=== PATIENT | female | born 1960 | race Caucasian/White ===

== ENCOUNTER 2019-07-23 13:55 | Outpatient (CLI) | payer MEDICARE, OTHER, SELFPAY ==
--- NOTE | 2019-07-23 14:09 | XR_ITS ---
WS: [id number] ABDOMEN 1 VIEW(S) HISTORY: UNSPECIFIED ABDOMINAL PAIN COMPARISON: 10/16/2014 Surgical sutures in the RIGHT abdomen from prior partial colectomy. There is a calcification measurin g 7.5 mm in the RIGHT abdomen. Could be associated with the ureter. No mass is identified. Sclerotic focus in the LEFT ilium has been present on prior studies. XR/XR abdomen 1V* [id number] IMPRESSION: 1. 7.5 mm calcification in the mid RIGHT abdomen may be a stone in the mid ure ter. For additional evaluation consider follow-up noncontrast CT abdomen and pe lvis. 2. Postsurgical changes in the RIGHT abdomen from prior colon surgery.
== END 2019-07-23 13:56 | disposition home or self-care (01) ==
LOC: RADWPI 14:00
PROVIDERS: Family Provider Family Medicine; PCP Nurse Practitioner Family; Visit Provider Nurse Practitioner Family
DX: R10.9 Unspecified abdominal pain (principal); Z98.890 Other specified postprocedural states
CPT/HCPCS: 74018

== ENCOUNTER 2019-07-25 10:12 | Outpatient (CLI) | payer MEDICARE, OTHER, SELFPAY ==
--- NOTE | 2019-07-25 10:19 | CT_ITS ---
WS: [id number] CT ABDOMEN AND PELVIS NONCONTRAST HISTORY: RENAL CALCULI TECHNIQUE: Imaging performed through the abdomen and pelvis. Coronal and sagittal reformats are submi tted. All CT scans at [facility] use at least one of these dose optimization techniques: automated exposure control; mA and/or kV adjustment per patient size (includes targeted exams where d ose is matched to clinical indication); or iterative reconstruction. DLP: 1216.64 mGycm COMPARISON: 10/16/2014 and KUB 07/23/2019 Lower thorax: Mild dependent changes at the lung bases. Cardiac chambers are very slightly enlarged. No pericardial effusion. No significant hiatal hernia. Liver: Mild hepatic steatosis. No bile duct dilatation. There is very slight enlargement of the liver extending to the iliac crest. Gallbladder: Unremarkable. Pancreas: Normal. Spleen: Normal. Adrenal glands: Normal. Right kidney: Normal size with no stones, masses or atrophy. Left kidney: Normal size with no stones, mass or atrophy. Minimal atherosclerosis. No aneurysm. No free fluid, intraperitoneal air or significant lymphadenopathy. GI tract: Extensive postsurgical changes in the RIGHT colon. Patient is status post RIGHT hemicolecto my. Calcification recently described on radiograph was probably associated with the postsurgical piña ges. No acute inflammation. No GI tract obstruction. Abdominal wall: Intact. Pelvis: No free fluid in the pelvis. Atrophic uterus is present. Coarse calcifications in the RIGHT l ateral uterus probably related to fibroid. Urinary bladder is minimally distended. Osseous structures: Unremarkable. CT/CT kidney stone [id number] IMPRESSION: 1. No renal stone or obstruction. Recently described calcification in the RIGH T abdomen was probably related to the postsurgical changes from hemicolectomy. 2. Partial RIGHT hemicolectomy. No ascites or mass. 3. Mild hepatomegaly and hepatic steatosis.
== END 2019-07-25 10:13 | disposition home or self-care (01) ==
LOC: RADWPI 10:15
PROVIDERS: Family Provider Family Medicine; PCP Nurse Practitioner Family; Visit Provider Nurse Practitioner Family
DX: N20.0 Calculus of kidney (principal); R16.0 Hepatomegaly, not elsewhere classified; K76.0 Fatty (change of) liver, not elsewhere classified
CPT/HCPCS: 74176

== ENCOUNTER 2019-07-26 07:36 | Outpatient (CLI) | payer MEDICARE, OTHER, SELFPAY ==
--- NOTE | 2019-07-26 07:44 | XR_ITS ---
WS: [id number] XR KUB [id number] REASON FOR EXAM: renal calculus FINDINGS: Previous exam dated July 23, 2019 a stone was seen in the right kidney this appears to be sim ilar in appearance. There is overlying fecal stasis in previous resection of the colon changes are no lane in this area. There are scattered fecal stasis seen throughout the colon. XR/XR KUB [id number] IMPRESSION: Postop changes of the right colon. There appears to be a stone in the right kidney unchanged.
== END 2019-07-26 07:37 | disposition home or self-care (01) ==
LOC: RAD 07:40
PROVIDERS: PCP Nurse Practitioner Family; Visit Provider Urology
DX: N20.1 Calculus of ureter (principal); N20.0 Calculus of kidney; N20.9 Urinary calculus, unspecified; N30.01 Acute cystitis with hematuria
CPT/HCPCS: 74018; 80053; 81001; 87077; 87086; 87186

== ENCOUNTER → 2019-08-27 09:22 | Outpatient (BNVA) | payer MEDICARE, OTHER, SELFPAY | PROVIDERS: PCP Nurse Practitioner Family; Visit Provider Nurse Practitioner Family | DX: N30.01 Acute cystitis with hematuria (principal) | CPT/HCPCS: 81001 ==

== ENCOUNTER 2020-02-07 08:16 | Outpatient (CLI) | payer MEDICARE, OTHER, SELFPAY ==
--- NOTE | 2020-02-07 08:25 | XR_ITS ---
WS: [id number] PROCEDURE: XR chest 2V* [id number] CLINICAL INFORMATION: PERSISTENT COUGH FOR 3 WEEEKS OF LONGER COMPARISON: FINDINGS: Heart: Normal cardiac silhouette. Lungs: Moderate chronic emphysematous changes. No acute pulmonary infiltrates. No focal pneumonia or pleural fluid. Bones: Osteopenia. Mild thoracic kyphosis. XR/XR chest 2V* [id number] IMPRESSION: No acute chest findings.
== END 2020-02-07 08:17 | disposition home or self-care (01) ==
LOC: RADWPI 08:21
PROVIDERS: PCP Nurse Practitioner Family; Visit Provider Nurse Practitioner Family
DX: R05 Cough (principal)
CPT/HCPCS: 71046

== ENCOUNTER 2020-07-20 12:46 | Outpatient (CLI) | payer MEDICARE, OTHER, SELFPAY ==
--- NOTE | 2020-07-20 12:50 | MM_ITS ---
WS: [id number] BILATERAL DIGITAL SCREENING MAMMOGRAPHY WITH CAD CLINICAL INFORMATION: SCREENING HISTORY: Screening mammogram. No current complaints. COMPARISON: [id number] TECHNIQUE: Bilateral CC and MLO views. FINDINGS: History of breast reduction Scattered fibroglandular densities bilaterally. No suspicious focal mass, asymmetry, calcifications, or architectural distortion. No evidence of malignancy. Stable punctate calcifications. Stable intram ammary lymph node right breast. MM/[place] [id number] IMPRESSION: BI-RADS: 2-Benign FOLLOW UP: 1 Year Follow-up Recommend return to annual screening mammography.
--- NOTE | 2020-07-20 13:52 | XR_ITS ---
WS: [id number] DEXA (DUAL ENERGY X-RAY ABSORPTIOMETRY) Bone mineral density was performed using a Yottaa machine. HISTORY: AGE RELATED OSTEOPOROSIS WITHOUT CURRENT PATHOLOGICAL FRACTURE COMPARISON: 11/29/2017 Lumbar spine BMD (L1-L4): 1.096 g/cm2 T score: -0.7 Z score: -0.2 Total hip BMD: Left: 0.942 g/cm2. T score: -0.5 Z score: -0.1 Right: 0.913 g/cm2. T score: -0.8 Z score: -0.3 10 year probability of a major osteoporotic fracture is 7%. Compared to the prior study from 11/29/2017. Lumbar spine bone mineral density has increased by 8.0%. Bilateral hips bone mineral density has increased by 3.8%. XR/XR DEXA axial skeleton* [id number] IMPRESSION: 1. NORMAL BONE MINERAL DENSITY based upon the WHO classification for females. 2. Significant increase in bone mineral density within the hips and lumbar spi ne since the prior study.
== END 2020-07-20 12:47 | disposition home or self-care (01) ==
LOC: RADSHAW 12:49
PROVIDERS: PCP Nurse Practitioner Family; Visit Provider Nurse Practitioner Family
DX: Z12.31 Encounter for screening mammogram for malignant neoplasm of breast (principal); M81.0 Age-related osteoporosis without current pathological fracture
CPT/HCPCS: 77067; 77080

== ENCOUNTER 2020-10-20 11:37 | Outpatient (CLI) | payer MEDICARE, OTHER, SELFPAY ==
--- NOTE | 2020-10-20 11:47 | XR_ITS ---
WS: [id number] Left ankle, 3 views, 10/20/2020 Clinical Data: INJURY OF LEFT ANKLE Comparison: None. Findings: No fractures or dislocations are seen. The ankle mortise is normal. The talus and calcaneus are unrem arkable. There is minimal soft tissue swelling overlying lateral malleolus.There is a plantar spur an d an Achilles spur. XR/XR ankle LT min 3V* [id number] Impression: 1. Negative for left ankle fracture. 2. Soft tissue swelling over lateral malleolus.
--- NOTE | 2020-10-20 11:47 | XR_ITS ---
WS: [id number] Left foot, 3 views, 10/20/2020 Clinical Data: INJURY OF LEFT ANKLE Comparison: None. Findings: No fractures or dislocations are seen. No bone destruction or erosion is noted. The joint spaces and soft tissues are normal. There are incidental calcifications inferior to the tip of the lateral malleolus overlying the infer ior aspect of the calcaneus. There is an Achilles spur and a plantar spur. XR/XR foot LT min 3V* [id number] Impression: Negative left foot.
== END 2020-10-20 11:38 | disposition home or self-care (01) ==
PROVIDERS: PCP Nurse Practitioner Family; Visit Provider Nurse Practitioner Family
DX: S99.912A Unspecified injury of left ankle, initial encounter (principal); X58.XXXA Exposure to other specified factors, initial encounter; M79.89 Other specified soft tissue disorders
CPT/HCPCS: 73610; 73630

== ENCOUNTER 2021-08-11 10:44 | Outpatient (CLI) | payer MEDICARE, OTHER, SELFPAY ==
--- NOTE | 2021-08-11 10:55 | MM_ITS ---
WS: [id number] BILATERAL SCREENING DIGITAL BREAST TOMOSYNTHESIS MAMMOGRAM WITH CAD HISTORY: SCREENING COMPARISON: 07/20/2020, 11/22/2018 Bilateral CC and MLO views with tomosynthesis and synthetic mammography submitted. Computer aided det ection analyzed. Breast composition: There are scattered areas of fibroglandular density. No suspicious masses, microc alcifications or architectural distortion. Benign calcifications in each breast. MM/[place] [id number] IMPRESSION: BI-RADS: 2-Benign FOLLOW UP: 1 Year Follow-up
== END 2021-08-11 10:45 | disposition home or self-care (01) ==
LOC: RAD 10:49
PROVIDERS: PCP Nurse Practitioner Family; Visit Provider Nurse Practitioner Family
DX: Z12.31 Encounter for screening mammogram for malignant neoplasm of breast (principal)
CPT/HCPCS: 77063; 77067

== ENCOUNTER 2022-09-06 20:00 | Outpatient (CLI) | payer MEDICARE, OTHER, SELFPAY | END 2022-09-06 20:01 | disposition home or self-care (01) | LOC: SLEEP 09-07 04:44 | PROVIDERS: Visit Provider Otolaryngology | DX: G47.33 Obstructive sleep apnea (adult) (pediatric) (principal) | CPT/HCPCS: 95810 ==

== ENCOUNTER 2023-04-13 08:55 | Outpatient (CLI) | payer MEDICARE, SELFPAY ==
--- NOTE | 2023-04-13 09:03 | MR_ITS ---
WS: [id number] MRI LEFT SHOULDER HISTORY: PAIN IN L SHOULDER COMPARISON: None available. TECHNIQUE: Multiplanar sequences of the shoulder joint are submitted. Mild AC joint arthritis. Small erosions involving the distal clavicle and the adjacent acromion. Ther e is a small amount of subacromial and subdeltoid fluid closely associated with the AC joint. Small o steophytes encroaching upon the myotendinous portion of the supraspinatus. Moderate subacromial impin gement. No os acromion. Normal position of the biceps tendon. Mild narrowing of the glenohumeral joint. Loss of cartilage over the glenoid and humeral head. Subcho ndral cystic change in the superior humeral head measures 10 x 5 mm. Mild subscapularis and supraspin atus muscle atrophy with no edema. At the site of the subacromial impingement there is increased T2 s ignal throughout the tendon of the supraspinatus. There is a very small amount of fluid along the int erstitial portion of the supraspinatus tendon. Normal subscapularis tendon and infraspinatus tendon. No labral tear. IMPRESSION: 1. Mild AC joint arthritis. Small erosions involving the distal clavicle and adjacent acromion. 2. AC joint osteophytes encroach upon the myotendinous portion of the supraspinatus with adjacent te ndinopathy. 3. Moderate subacromial impingement upon the supraspinatus tendon. 4. Distal supraspinatus tendinopathy. No tendon tear is identified. There is a tiny amount of fluid along the tendon sheath. 5. Mild supraspinatus and subscapularis muscle atrophy.
== END 2023-04-13 08:56 | disposition home or self-care (01) ==
LOC: RAD 08:56
PROVIDERS: Visit Provider Family Medicine
DX: M19.012 Primary osteoarthritis, left shoulder (principal); M25.78 Osteophyte, vertebrae; M75.42 Impingement syndrome of left shoulder; M62.512 Muscle wasting and atrophy, not elsewhere classified, left shoulder
CPT/HCPCS: 73221

== ENCOUNTER → 2023-05-26 07:54 | Outpatient (BNVA) | payer MEDICARE, SELFPAY | PROVIDERS: PCP Family Medicine; Referring Provider Family Medicine; Visit Provider Physician Assistant | DX: M25.512 Pain in left shoulder (principal); M75.42 Impingement syndrome of left shoulder; M19.012 Primary osteoarthritis, left shoulder | CPT/HCPCS: 20610; 73030; 99203; J3301 ==

== ENCOUNTER 2023-08-11 08:33 | Outpatient (RCR) | payer MEDICARE, SELFPAY | END 2023-08-18 23:59 | disposition home or self-care (01) | LOC: SPT 08:33 | PROVIDERS: PCP Family Medicine; Visit Provider Physician Assistant | DX: M75.42 Impingement syndrome of left shoulder (principal) | CPT/HCPCS: 97110; 97162 ==

== ENCOUNTER 2023-08-19 06:00 | Outpatient (RCR) | payer MEDICARE, SELFPAY | END 2023-09-17 23:59 | disposition home or self-care (01) | LOC: SPT 06:00 | PROVIDERS: PCP Family Medicine; Visit Provider Physician Assistant | DX: M75.100 Unspecified rotator cuff tear or rupture of unspecified shoulder, not specified as traumatic (principal) | CPT/HCPCS: 97110 ==

== ENCOUNTER → 2023-08-29 08:30 | Outpatient (BNVA) | payer MEDICARE, SELFPAY | PROVIDERS: PCP Family Medicine; Visit Provider Physician Assistant | DX: M75.42 Impingement syndrome of left shoulder; G56.02 Carpal tunnel syndrome, left upper limb; G56.22 Lesion of ulnar nerve, left upper limb; M19.012 Primary osteoarthritis, left shoulder | CPT/HCPCS: 99213 ==

== ENCOUNTER 2023-09-18 06:00 | Outpatient (RCR) | payer MEDICARE, SELFPAY | END 2023-09-22 23:59 | disposition home or self-care (01) | LOC: SPT 06:00 | PROVIDERS: PCP Family Medicine; Visit Provider Physician Assistant | DX: M75.42 Impingement syndrome of left shoulder (principal) | CPT/HCPCS: 97110 ==

== ENCOUNTER 2023-10-11 09:05 | Outpatient (CLI) | payer MEDICARE, SELFPAY ==
--- NOTE | 2023-10-11 09:17 | MM_ITS ---
WS: [id number] SCREENING DIGITAL BREAST TOMOSYNTHESIS MAMMOGRAM WITH CAD HISTORY: SCREENING COMPARISON: 08/11/2021 and 07/20/2020 Bilateral CC and MLO with tomosynthesis and synthetic mammography submitted. Computer aided detection analyzed. Breast composition: There are scattered areas of fibroglandular density. New area of subtle enterprise architect manager ural distortion has developed in the lateral RIGHT breast near the 9:00 axis for which further evalua tion is necessary. Benign cluster of calcifications posterior to the RIGHT nipple. There are addition al scattered calcifications which are benign. MM/[place] [id number] IMPRESSION: BI-RADS: 0-Incomplete: Need additional imaging evaluation FOLLOW UP: Need Additional Imaging RIGHT breast: Spot compression views (CC and MLO). True ML. Ultrasound to follo w if abnormality persists.
== END 2023-10-11 09:06 | disposition home or self-care (01) ==
LOC: RAD 09:06
PROVIDERS: PCP Family Medicine; Visit Provider Family Medicine
DX: Z12.31 Encounter for screening mammogram for malignant neoplasm of breast (principal); R92.323 Mammographic fibroglandular density, bilateral breasts; R92.1 Mammographic calcification found on diagnostic imaging of breast
CPT/HCPCS: 77063; 77067

== ENCOUNTER → 2023-11-23 15:15 | Outpatient (BNVA) | payer MEDICARE, SELFPAY | PROVIDERS: PCP Family Medicine; Visit Provider Physician Assistant | DX: G56.02 Carpal tunnel syndrome, left upper limb (principal); G56.22 Lesion of ulnar nerve, left upper limb | CPT/HCPCS: 99214 ==

== ENCOUNTER 2023-11-28 10:14 | Outpatient (CLI) | payer MEDICARE, SELFPAY ==
--- NOTE | 2023-11-28 10:16 | MM_ITS ---
WS: [id number] ADDITIONAL VIEWS RIGHT MAMMOGRAM WITH DIGITAL BREAST TOMOSYNTHESIS. RIGHT BREAST ULTRASOUND HISTORY: ABNORMAL MAMMOGRAM COMPARISON: 10/11/2023, 08/11/2021 RIGHT MAMMOGRAM: Spot compression views and true ML with digital breast tomosynthesis and SM. Breast composition: There are scattered areas of fibroglandular density. Focal area of architectural distortion measuring 8 x 6 mm persists in the lateral RIGHT breast near 9 :00. No significant associated soft tissue mass. RIGHT BREAST ULTRASOUND 2-D and color Doppler imaging submitted. No abnormality is noted within the RIGHT breast in the upper outer quadrant. MM/[place] [id number] IMPRESSION: BI-RADS: 3 - Probably Benign. FOLLOW UP: 6 Month Follow-up There is a very subtle area of distortion evident in the RIGHT breast near 9:00 . No corresponding ultrasound finding. I have discussed this with the patient. Recommend 6-month follow-up mammogram and ultrasound.
== END 2023-11-28 10:15 | disposition home or self-care (01) ==
LOC: RAD 10:14
PROVIDERS: PCP Family Medicine; Visit Provider Family Medicine
DX: R92.8 Other abnormal and inconclusive findings on diagnostic imaging of breast (principal); R92.323 Mammographic fibroglandular density, bilateral breasts; N63.11 Unspecified lump in the right breast, upper outer quadrant
CPT/HCPCS: 76642; 77061; G0279

== ENCOUNTER 2023-12-19 06:00 | Outpatient (RCR) | payer MEDICARE, SELFPAY | END 2024-01-18 23:59 | disposition home or self-care (01) | LOC: SOT 06:00 | PROVIDERS: Visit Provider Student in an Organized Health Care Education/Training Program | DX: G56.22 Lesion of ulnar nerve, left upper limb (principal); G56.02 Carpal tunnel syndrome, left upper limb | CPT/HCPCS: 97165; 97760; L3763 ==

== ENCOUNTER 2023-12-28 07:19 | Day surgery (SDC) | payer MEDICARE, SELFPAY ==
[2023-12-28] VITALS (11 sets, daily range): BP systolic 105–127; BP diastolic 68–78; PULSE 55–65; RESP 12–16; TEMP 36.1–36.5; O2SAT 94–100; BMI 32.5
--- NOTE | 2023-12-28 07:52 | W.PM.OPSFHP ---
Same Day Surgery H&P Indication for Procedure/HPI DATE OF PROCEDURE: December 28, 2023 CHIEF COMPLAINT/INDICATIONFOR SURGICAL PROCEDURE: Recurrent left carpal tunnel syndrome, left cubital tunnel syndrome PREOP DIAGNOSIS: Recurrent left carpal tunnel syndrome, left cubital tunnel syndrome PLANNED PROCEDURE: Operation Date: 12/28/23 09:00 Proposed Procedures p Carpal Tunnel Release revision(Left) - Getachew Converse, DO s Cubital Tunnel Release(Left) - Getachew Converse, DO s Ulnar Nerve Transposition(Left) - Getachew Daniela, DO Medications/Allergies* Home Medications Medication Instructions Recorded Confirmed Type albuterol sulfate 90 mcg/actuation 2 puff inhalation Q4H PRN Wheezing 07/25/19 12/27/23 History aerosol inhaler (Ventolin HFA) alendronate 70 mg tablet 70 mg PO .weekly 07/25/19 12/27/23 History gabapentin 400 mg capsule 400 mg PO TID 07/25/19 12/27/23 History nortriptyline 25 mg capsule 25 mg PO DAILY 07/25/19 12/27/23 History sumatriptan succinate 25 mg tablet 25 mg PO Q2H PRN Migraine Headache 07/25/19 12/27/23 History topiramate 100 mg capsule,extended 100 mg PO BID 07/25/19 12/27/23 History release 24 hr primidone 50 mg tablet (Mysoline) 100 mg PO BID 01/24/22 12/27/23 History aspirin 81 mg tablet,delayed 81 mg PO DAILY 05/26/23 12/27/23 History release (Adult Low Dose Aspirin) atorvastatin 40 mg tablet 40 mg PO DAILY 05/26/23 12/27/23 History duloxetine 60 mg capsule,delayed 60 mg PO DAILY 05/26/23 12/27/23 History release erenumab-aooe 140 mg/mL 140 mg SUBCUT .monthly 05/26/23 12/27/23 History subcutaneous auto-injector (Aimovig Autoinjector) esomeprazole magnesium 20 mg 20 mg PO DAILY 05/26/23 12/27/23 History capsule,delayed release metoprolol tartrate 50 mg tablet 50 mg PO BID 05/26/23 12/27/23 History semaglutide 3 mg tablet (Rybelsus) 3 mg PO DAILY 11/23/23 12/27/23 History Allergies/Adverse Reactions Allergy/AdvReac Type Severity Reaction Status Date / Time codeine Allergy Unknown Verified 12/27/23 14:59 prochlorperazine Allergy Unknown Verified 12/27/23 14:59 [From Compazine] Pertinent History/Comorbid Conditions* Medical History (Updated 08/29/23 @ 09:35 by KRISTA Maxwell) Gross hematuria Acute cystitis Fibromyalgia HTN (hypertension) Surgical History (Updated 07/26/19 @ 09:02 by Jaja Hung APRN) History of carpal tunnel release of both wrists Hx of arthroscopy of left knee H/O section X3 H/O bilateral breast reduction surgery History of colon resection Family History (Updated 07/25/19 @ 09:47 by Rosalie Mcnamara LPN) Osteoarthritis Father Hypertension Father Social History Smoking and tobacco/nicotine status: never used tobacco/nicotine Alcohol intake: never Adopted: No Caregiver/support person: No Lives independently: No Household members: spouse Marital status: Current occupational status: retired Current gender identity: Female Pertinent Exam Findings alert, oriented x 3, operative site marked and procedure specific exam findings Please refer to detailed orthopedic examination on 11/23/2023: Left Hand exam-positive Tinel's and positive Phalen's test. She has some thenar atrophy and thenar muscle weakness. Full range of motion in fingers and fingers are warm and well-perfused with normal cap refill under 2 seconds. Radial pulse 2+, intrinsic muscle weakness noted. Limited range of motion of the wrist especially with flexion of wrist-patient states this is a chronic issue with left wrist Elbow exam-positive Tinel's test Recommendations Surgery/Procedure today Other Plans: Plan to proceed to the OR today for left carpal tunnel release revision, left cubital tunnel release with possible nerve transposition. Patient understands the ins and outs procedure, the risk benefits complication alternatives of surgery and through shared decision-making elects proceed with surgical intervention at this time. All questions answered at this time. Coding Level of Care Code Acute Code for Sean Fwtamiko
--- NOTE | 2023-12-28 08:08 | P.ANESASSM_ITS ---
Pre-Anesthetic Assessment Height/Weight: Height 1.63 m Weight 86.183 kg Temp Pulse Resp BP Pulse Ox O2 Del Method 97.6 F 64 16 108/72 100 Room Air 12/28/23 07:47 12/28/23 07:47 12/28/23 07:47 12/28/23 07:47 12/28/23 07:47 12/28/23 07:47 Preop Diagnosis: Recurrent left carpal tunnel syndrome, left cubital tunnel syndrome Operation Date: 12/28/23 09:00 Proposed Procedures p Carpal Tunnel Release revision(Left) - Getachew [place], DO s Cubital Tunnel Release(Left) - Getachew [place], DO s Ulnar Nerve Transposition(Left) - Getachew Daniela, DO Familial anesthetic complications: None Was Beta Daniel taken within 24 hours: N/A Was Clonidine taken within 24 hours: N/A Last intake: Intake Last Liquid Date 12/27/23 Last Liquid Time 19:00 Last Solid Date 12/27/23 Last Solid Time 19:00 Social No alcohol and No tobacco Exam alert, oriented x 3, clear to auscultation bilaterally and regular rate & rhythm Airway Mallampati: Class II Dentition: full Pulmonary Sleep Apnea GI Gastroesophageal Reflux Disease Metabolic Hyperlipidemia Anesthetic Plan ASA status: 2 Anesthesia: General and Regional (specify below) Risk of > 500 ml blood loss (7ml/kg in children): No Medications/Allergies Home Medications Medication Instructions Recorded Confirmed Last Taken Type albuterol sulfate 90 mcg/actuation 2 puff inhalation Q4H PRN Wheezing 07/25/19 12/27/23 Unknown History aerosol inhaler (Ventolin HFA) alendronate 70 mg tablet 70 mg PO .weekly 07/25/19 12/27/23 12/23/23 History gabapentin 400 mg capsule 400 mg PO TID 07/25/19 12/27/23 12/27/23 History nortriptyline 25 mg capsule 25 mg PO DAILY 07/25/19 12/27/23 12/26/23 History sumatriptan succinate 25 mg tablet 25 mg PO Q2H PRN Migraine Headache 07/25/19 12/27/23 12/20/23 History topiramate 100 mg capsule,extended 100 mg PO BID 07/25/19 12/27/23 12/27/23 History release 24 hr primidone 50 mg tablet (Mysoline) 100 mg PO BID 01/24/22 12/27/23 12/27/23 History aspirin 81 mg tablet,delayed 81 mg PO DAILY 05/26/23 12/27/23 12/25/23 History release (Adult Low Dose Aspirin) atorvastatin 40 mg tablet 40 mg PO DAILY 05/26/23 12/27/23 12/27/23 History duloxetine 60 mg capsule,delayed 60 mg PO DAILY 05/26/23 12/27/23 12/27/23 History release erenumab-aooe 140 mg/mL 140 mg SUBCUT .monthly 05/26/23 12/27/23 12/20/23 History subcutaneous auto-injector (Aimovig Autoinjector) esomeprazole magnesium 20 mg 20 mg PO DAILY 05/26/23 12/27/23 12/27/23 History capsule,delayed release metoprolol tartrate 50 mg tablet 50 mg PO BID 05/26/23 12/27/23 12/28/23 History semaglutide 3 mg tablet (Rybelsus) 3 mg PO DAILY 11/23/23 12/27/23 12/20/23 History tramadol 50 mg tablet 50 mg PO Q6H PRN pain 7 days #28 12/28/23 Unknown Rx tabs Allergies Allergy/AdvReac Type Severity Reaction Status Date / Time codeine Allergy Unknown Verified 12/27/23 14:59 prochlorperazine Allergy Unknown Verified 12/27/23 14:59 [From Compazine] [facility] Anesthesia Medical History Gross hematuria Acute cystitis Fibromyalgia HTN (hypertension) Surgical History History of carpal tunnel release of both wrists Hx of arthroscopy of left knee H/O section X3 H/O bilateral breast reduction surgery History of colon resection Family History Father Hypertension Osteoarthritis Social History Smoking and tobacco/nicotine status: never used tobacco/nicotine Alcohol intake: never Adopted: No Caregiver/support person: No Lives independently: No Household members: spouse Marital status: Current occupational status: retired Current gender identity: Female Data Anesthesia Cardiac Studies: No Data to Display
[2023-12-28] MEDS: ketorolac 30 mg/mL INJ IVP (08:15)
[2023-12-28] MEDS: acetaminophen 1,000 MG/100 ML PIGGYBACK 400 MG IV (08:15)
[2023-12-28] MEDS: sodium chloride 0.9% 1,000 ML 30 ML IV (08:15)
--- NOTE | 2023-12-28 08:27 | ANES.PROC ---
Anesthesia Procedures Procedure/Date: 12/28/23 Nerve Block ^: Nerve Block 1: Main Anesthesia: general anesthesia Time Out Performed: Yes Consent: requested by attending/covering physician, from patient, from other, risks and benefits reviewed and patient agrees to proceed Nerve block location: axillary (L) Anesthesia monitors applied: pulse oximetry, EKG, BP cuff and oxygen Nerve block position: supine Anesthetic Used: ropivicaine 0.5% (30 ml) and with decadron (4 mg) Ultrasound used to: recognize landmarks and visualize and ID brachial plexus Nerve Stimulator Used?: No Interscalene/Femoral BLK: 2 stimuplex 22 g needle used for position and inplane approach, visualize local anesthetic spread and no vascular puncture identified Injection: neg aspiration of heme Patient Tolerated Procedure: well Complications: none
--- NOTE | 2023-12-28 08:30 | SUR.PREOP ---
08:15 left axillary nerve block performed by doctor Naqvi. pt on coding quality analyst showing NSR. on O2 via nasal cannula. 30ml of 0.5% ropivacaine used.
[2023-12-28] MEDS: ceFAZolin 2,000 MG in sodium chloride 0.9% (plus) 50 ML 100 MG IV (08:45)
[2023-12-28] MEDS: ROPivacaine 0.5% SDV 30 mL 150 MG INJECTION (10:00)
[2023-12-28] MEDS: lidocaine-epi 1% 20 mL INJ INJECTION (10:00)
--- NOTE | 2023-12-28 10:24 | P.BOP_ITS ---
Date of Procedure: 12/28/2023 Surgeon: Getachew Suarez DO Transmission Maintenance Supervisor(s): None Procedure(s) performed: Left carpal tunnel release revision Left cubital tunnel release Left elbow ulnar nerve transposition Findings of the procedure(s): Patient was found to have a recurrent left carpal tunnel syndrome as well as left cubital tunnel syndrome after decompression of the cubital tunnel patient was found to have an unstable and subluxating ulnar nerve as a result decision was made for left elbow ulnar nerve transposition. Patient underwent procedure as planned without issues or complications. Estimated blood loss: 10 mL Specimen(s) removed: None Post-operative diagnosis: Left carpal tunnel syndrome, left cubital tunnel syndrome
--- NOTE | 2023-12-28 10:25 | P.OP_ITS ---
Operative Report Date of procedure: December 28, 2023 Surgeon: Getachew Suarez DO Procedure: Procedure: Preoperative diagnosis: Left?carpal?tunnel syndrome Left?cubital tunnel syndrome post-op diagnosis:? Left?carpal?tunnel syndrome and Left?cubital tunnel syndrome and subluxating ulnar nerve Post-op findings: See operative note Procedure done: Left?carpal?tunnel release Left?cubital tunnel release(ulnar nerve decompression) Left ulnar nerve?transposition? Surgeon: Getachew Suarez DO Estimated blood loss: 10 cc Tourniquet Time: 32minutes IV fluids: See anesthesia record Complications: None Findings: See operative report narrative Condition: stable Disposition: same day Brief History: Patient is a pleasant 63-year-old female was seen evaluated in the outpatient setting for Left ulnar nerve neuropathy at the elbow and recurrent left?carpal?tunnel syndrome. Patient had NCS findings consistent with this.? ?On my examination in the office patient findings are consistent with this preoperative diagnosis. We had detailed discussion in office about continued nonoperative intervention versus operative intervention.? Patient understands the risk benefits complications alternatives to surgical and nonsurgical treatment options.? Patient understands the risks include but not limited to make it better, make it worse, infection, permanent injury to nerve, decreased function and sensation to the hand with persistent weakness.? Given these risks patient understands and agrees to proceed with current plan.? Patient elects to proceed with a surgical intervention of left carpal tunnel release revision, left cubital tunnel release with possible ulnar nerve transposition. All questions answered. Procedure: Patient was seen and evaluated in the preoperative holding area.? The consent signed with patient Correct extremity was then marked.? Patient was seen evaluated by the preoperative team as well as anesthesia department.? Patient received regional anesthesia. once cleared for surgery patient was then taken to the operative suite and transported onto the operative table all bony prominences were well-padded and patient was secured to the table.? Left upper extremity was placed on an armboard.? Patient then underwent anesthesia per the anesthesia department. . Patient's Left upper extremity was then prepped and draped in standard orthopedic fashion.? This point a final timeout was performed. Patient received appropriate preop antibiotics. Sterile tourniquet applied left upper arm Esmarch tourniquet was used to exsanguinate the operative extremity and was insufflated to 250 mmHg.? I started with the?carpal?tunnel release first I made an extended open incision utilizing patient's previous incision also transversing across the wrist crease in a Mino fashion to have a complete open release and decompression of the carpal tunnel.? I made a open?carpal?tunnel release starting with the distal most extent in the palm at the Cotter's cardinal line and the incision line was made in line with the fourth ray and Mino incision past the wrist crease into the distal forearm. sharp scalpel incision was made through skin and subcutaneous tissue I then utilizing self retainer then began to dissect with dissection scissors split longitudinally the palmar fascia.? Next I then utilizing my first assistant Avelina retractors subsequently utilizing scalpel feathered through the palmaris brevis as well as through the transverse?carpal?ligament distally.? Patient was found to have significant scar and thickening and recurrence of the transverse carpal ligament. Once I encountered the floor of the transverse?carpal?ligament and entered into the?carpal?tunnel I then switched to dissection scissors.? Carefully released the distal extent of the transverse?carpal?ligament to the palmar fat.? Care was to protect the recurrent branch and not injured this during this part of the case.? Next I then placed a [place] underneath the transverse?carpal?ligament proximally to protect the nerve in the?carpal?tunnel contents.? And then I subsequently under loupe magnification utilize my dissection scissors to release the transverse?carpal?ligament into the antebrachial fascia under direct visualization with care to keep my scissors with a curved ulnarly away from the palmar cutaneous branch.? The transverse?carpal?was then completely decompressed proximally and a [place] was then placed both distally and proximally throughout the?carpal?tunnel and had complete decompression of the nerve.? The nerve did appear to have hourglass shape as it went through the?carpal?tunnel With significant irritation noted around the nerve.? No masses were noted within the contents of the?carpal?tunnel.? This completed the?carpal?tunnel release and then I subsequently irrigated the wound bed and placed a wet [place] into the incision for later closure. Standard curvilinear incision was made centering over the ulnar nerve between the medial epicondyle and olecranon process.? Sharp scalpel excision through skin and subcutaneous tissue was performed.? Once I encountered subcutaneous tissue I then utilized dissection scissors to spread in the path of the [facility] and care was made to protect any nerve branches throughout this case.? I then utilized a scalpel to complete my dissection directly on over to the flexor pronator mass and elevated this fat tissue directly off of the fascia.? I started my dissection of the ulnar nerve the nerve proximally.? Once identified I then utilized Littler dissection scissors and decompress the nerve completely and proximally and utilized blunt dissection to make sure there was no entrapment proximally..? Once decompressed proximally I then traced the nerve distal through Delgado's ligament and as it entered the FCU fascia aponeurosis and completed by decompression and ulnar nerve neurolysis distally.? The nerve was completely released in situ no areas of entrapment I was able to place my finger distally and proximally with no areas entrapment along the nerve.? At this point in time by in situ release was completed I then subsequently took the elbow through range of motion and subluxation was noted over the medial epicondyle and plan for ulnar nerve?transposition?was made.? ?I thoroughly irrigated the nerve throughout the case to prevent it from drying out. Of note the ulnar nerve had significant irritation and inflammation.? Next while protecting the nerve as well as care to not injure any venous structures I then excised the intermuscular septum proximally with bipolar electrocautery.? This allowed for there to be no entrapment proximally with my?transposition.? Next I then performed my standard Z- flap into the fascia.? This created a large thick fascial band that would be sutured to secure the ulnar nerve when its been transposed.? Once the incision was made just through the fascia I then mobilized just the fascia and freed the muscle belly off of this.? I then sequentially excised the fascial bands throughout the flexor pronator mass to prevent any type of banded structure irritating the?transposition.? At this point I had only soft tissue and muscle belly with which the ulnar nerve could rest.? I had to do a small excision of the muscle belly distally to create a nice trough for the nerve to lie.? At this point I then mobilized the nerve and this was transposed into the flexor pronator insertion under the fasica flaps.? There was no evidence of kinking/tethering of the nerve.? this was significantly redundant and lax with no signs of tension or entrapment.? I then utilized a 3-0 Ethibond suture and approximated the fascia flaps that was created and the Left knee okay okay secured with horizontal interrupted mattress stitches.? I was able to place 2 fingers under the repair with no evidence of entrapment and the elbow was taken through range of motion and no areas of entrapment or kinking were noted on the nerve and the nerve was redundant relaxed in all ranges of motion.? This completed my ulnar nerve decompression of the?cubital tunnel as well as ulnar nerve?transposition.? Wound bed was then thoroughly irrigated.? Tourniquet was deflated.? Maintained exact hemostasis with bipolar electrocautery.? I did place a héctor drain to prevent hematoma formation. As result the skin was reapproximated with interrupted Vicryl subcutaneous suture 3-0.? I next utilized a running horizontal mattress stitch with 3-0 nylon.? Extremity was then cleaned and the incision was then covered with Xeroform 4 x 4's ABD Curlex and soft roll and a?splint and a long-arm posterior splint was then applied with an Wai wrap.? Patient was then awakened from anesthesia and taken to PACU in stable condition. Disposition: Patient taken to PACU in stable condition.? Patient given appropriate discharge instructions as well as pain medication.? We will get Patient in with OT hand therapy for splint takedown dressing change and drain pull tomorrow. patient will see me in office in 2 weeks.? pt understands? if they has any questions they can contact the office.
[2023-12-28 10:38] LABS: Glucose Point of Care 94 mg/dL (70-110)
--- NOTE | 2023-12-28 11:13 | SUR.PHASEII ---
11:12 Warm blankets applied.
--- NOTE | 2023-12-28 11:16 | SUR.PHASEII ---
11:15 GOOD CAP REFILL AND SENSATION TO FINGERS OF LEFT HAND.
--- NOTE | 2023-12-28 12:10 | ANE.PACU2 ---
Inpatient post-anesthesia follow up: Airway intact: Yes Vital signs: Temperature 97.6 F Pulse Rate 63 Respiratory Rate 16 Blood Pressure 127/70 Pulse Oximetry 97 Oxygen Delivery Me thod Room Air Oxygen Flow Rate 6 Fraction of Inspir ed Oxygen Hydration adequate: Yes Nausea and vomiting: No Pain level: 1 Mental status: Baseline
== END 2023-12-28 12:10 | disposition home or self-care (01) ==
PROVIDERS: PCP Family Medicine; Visit Provider Student in an Organized Health Care Education/Training Program
PROC: (CPT 64721; principal; 2023-12-28 08:50)
PROC: (CPT 64718; 2023-12-28 08:50)
PROC: (CPT 64719; 2023-12-28 08:50)
DX: G56.02 Carpal tunnel syndrome, left upper limb (principal); G56.22 Lesion of ulnar nerve, left upper limb; G47.30 Sleep apnea, unspecified; K21.9 Gastro-esophageal reflux disease without esophagitis; E78.5 Hyperlipidemia, unspecified; Z79.82 Long term (current) use of aspirin; M79.7 Fibromyalgia; I10 Essential (primary) hypertension
CPT/HCPCS: 64719; 64721; 36416; 82962; J0131; J0690; J1100; J1885; J2704; J2795; J3010; J7030

== ENCOUNTER → 2024-01-09 15:20 | Outpatient (BNVA) | payer MEDICARE, SELFPAY | PROVIDERS: Visit Provider Physician Assistant | DX: Z98.890 Other specified postprocedural states (principal) | CPT/HCPCS: 99024 ==

== ENCOUNTER → 2024-01-23 09:44 | Outpatient (BNVA) | payer MEDICARE, SELFPAY | PROVIDERS: Visit Provider Student in an Organized Health Care Education/Training Program | DX: M19.012 Primary osteoarthritis, left shoulder (principal) | CPT/HCPCS: 99213 ==

== ENCOUNTER → 2024-02-09 08:46 | Outpatient (BNVA) | payer MEDICARE, SELFPAY | PROVIDERS: Visit Provider Student in an Organized Health Care Education/Training Program | DX: M75.42 Impingement syndrome of left shoulder (principal); M19.012 Primary osteoarthritis, left shoulder | CPT/HCPCS: 20610; 77002; J3301 ==

== ENCOUNTER → 2024-02-29 13:42 | Outpatient (BNVA) | payer MEDICARE, SELFPAY | PROVIDERS: PCP Family Medicine; Visit Provider Physician Assistant | DX: Z98.890 Other specified postprocedural states (principal) | CPT/HCPCS: 99024 ==

== ENCOUNTER → 2024-05-14 07:56 | Outpatient (BNVA) | payer MEDICARE, SELFPAY | PROVIDERS: PCP Family Medicine; Visit Provider Physician Assistant | DX: M19.012 Primary osteoarthritis, left shoulder (principal) | CPT/HCPCS: 99213 ==

== ENCOUNTER 2024-05-27 10:44 | Outpatient (CLI) | payer MEDICARE, SELFPAY ==
--- NOTE | 2024-05-27 10:48 | MM_ITS ---
WS: [id number] DIAGNOSTIC RIGHT DIGITAL TOMOSYNTHESIS MAMMOGRAPHY WITH CAD. HISTORY: ABNORMAL MAMMO, 6-month follow-up. COMPARISON: 11/28/2023, 07/14/2017, 10/11/2023 Technique: CC, MLO and ML views. Spot compression RIGHT CC and MLO. Breast composition: There are scattered areas of fibroglandular density. The area of architectural distortion is not identified on today's mammogram. The scattered asymmetries are stable. There are a few benign calcifications. No ultrasound will be performed. MM/MM diag RT tomosynthesis [id number] IMPRESSION: BI-RADS: 3 - Probably Benign. FOLLOW UP: 6 Month Follow-up 1. No definite abnormality is noted on today's 6-month follow-up. Recommend 6- month diagnostic for mammogram follow-up. 6-month follow-up will be at the time of the patient's yearly exam. This area of architectural distortion will be re evaluated at that time. If the asymmetry is apparent additional spot compressio n views and ultrasound should be obtained at that time.
== END 2024-05-27 10:45 | disposition home or self-care (01) ==
PROVIDERS: PCP Family Medicine; Visit Provider Family Medicine
DX: R92.8 Other abnormal and inconclusive findings on diagnostic imaging of breast (principal); R92.321 Mammographic fibroglandular density, right breast; N64.89 Other specified disorders of breast; R92.1 Mammographic calcification found on diagnostic imaging of breast
CPT/HCPCS: 77061; G0279

== ENCOUNTER 2024-12-09 08:49 | Outpatient (CLI) | payer MEDICARE, SELFPAY ==
--- NOTE | 2024-12-09 08:53 | MM_ITS ---
WS: [id number] DIAGNOSTIC BILATERAL DIGITAL BREAST TOMOSYNTHESIS MAMMOGRAPHY WITH CAD HISTORY: ABNORMAL MAMMOGRAM COMPARISON: 05/27/2024, 11/28/2023, 10/11/2023 and 08/11/2021 TECHNIQUE: Bilateral craniocaudad, mediolateral oblique, and mediolateral views are submitted with tomosynthesis and SM. Spot compression LEFT MLO and CC. Computer aided detection utilized. Breast composition: There are scattered areas of fibroglandular density. The asymmetry and distortion in the posterior RIGHT breast does not persist. No suspicious architectural distortion or mass identified. No grouping of calcifications. Benign calcifications in each breast. MM/MM diag BI tomosynthesis [id number] IMPRESSION: BI-RADS: 2 - Benign. FOLLOW UP: 1 Year Follow-up Return to annual screening mammography.
== END 2024-12-09 08:50 | disposition home or self-care (01) ==
LOC: RAD 08:51
PROVIDERS: PCP Family Medicine; Visit Provider Family Medicine
DX: R92.8 Other abnormal and inconclusive findings on diagnostic imaging of breast (principal); N64.89 Other specified disorders of breast; R92.1 Mammographic calcification found on diagnostic imaging of breast
CPT/HCPCS: 77062; G0279